=== PATIENT | female | born 1995 | race American Indian/Alaskan Native ===

== ENCOUNTER 2022-04-29 11:42 | Inpatient (IN) | payer MEDICAID ==
[2022-04-29] MEDS ORDERED: OXYTOCIN DRIP 30,000 MILLIUNITS/500 ML BAG IV ONE (12:30)
[2022-04-29] MEDS ORDERED: LIDOCAINE (2%) 20 MG/1 ML VIAL 20 ML MDV INFILTRATI ONE ×2 (12:40→13:01)
[2022-04-29] MEDS ORDERED: fentaNYL 100 MCG/2 ML INJ ONE (12:42)
[2022-04-29] MEDS ORDERED: miSOPROStol 200 MCG TAB ONE (12:54)
[2022-04-29] MEDS ORDERED: OXYTOCIN 10 UNIT/1 ML INJ IM PRN (13:01)
[2022-04-29] MEDS ORDERED: ACETAMINOPHEN 325 MG TAB PO PRN ×2 (13:01→15:27)
[2022-04-29] MEDS ORDERED: PROMETHAZINE 25 MG TAB PO PRN ×2 (13:01→15:27)
[2022-04-29] MEDS ORDERED: miSOPROStol 200 MCG TAB PR PRN (13:01)
[2022-04-29] MEDS ORDERED: ePHEDrine SULFATE 50 MG/1 ML INJ IV PRN (13:01)
[2022-04-29] MEDS ORDERED: ONDANSETRON 4 MG/2 ML INJ IV PRN ×2 (13:01→15:27)
[2022-04-29] MEDS ORDERED: NalbUPHINE 10 MG/1 ML INJ IV PRN (13:01)
[2022-04-29] MEDS ORDERED: METHYLERGONOVINE MALEATE 0.2 MG/ML VIAL IM PRN (13:01)
[2022-04-29] MEDS ORDERED: CARBOPROST TROMETHAMINE 250 MCG/1 ML INJ IM PRN (13:01)
[2022-04-29] MEDS ORDERED: fentaNYL 100 MCG/2 ML INJ IV PRN (13:01)
[2022-04-29] MEDS ORDERED: TERBUTALINE 1 MG/1 ML INJ SUB-Q PRN (13:01)
[2022-04-29] MEDS ORDERED: PENICILLIN G POTASSIUM 5 MIL.UNITS in SODIUM CHLORIDE 0.9% 50 ML IV ONE (13:01)
[2022-04-29] MEDS ORDERED: MINERAL OIL 30 ML ORAL LIQD PO PRN (13:01)
[2022-04-29] MEDS ORDERED: LOPERAMIDE 2 MG CAP PO PRN (13:01)
[2022-04-29] MEDS ORDERED: LACTATED RINGERS 1,000 ML IV SCH (13:15)
--- NOTE | 2022-04-29 13:19 | History and Physical Report ---
History of Present Illness Date of examination: 04/29/22 Date of admission: 04/29/22 13:01 Chief complaint: ctx History of present illness: at 38.4wks by pt report of EDC 05/09/22. at [place]. Pt came to [facility] with c/o painful ctx and desire to push. pt admits to movement, denies LOF or vag bleed. pt denies headache. Pt states that she was given an injection during preg for her blood type. pt unaware of FOB blood type. Past History Past Medical History: other (morbid obesity) Past Surgical History: no surgical history Social history: no significant social history - Obstetrical History Expected Date of Delivery: 05/09/22 Actual Gestation: 38 Week(s) 4 Day(s) : 2 Hx # Term Pregnancies: 1 Number of Living Children: 1 Medications and Allergies Allergies Allergy/AdvReac Type Severity Reaction Status Date / Time strawberry Allergy Anaphylaxis Verified 04/29/22 12:43 Active Meds: Active Medications Acetaminophen (Acetaminophen 325 Mg Tab) 650 mg PO Q4H PRN PRN Reason: Pain, Mild (1-3) Carboprost Tromethamine (Carboprost Tromethamine 250 Mcg/1 Ml Inj) 250 mcg IM ONCE PRN PRN Reason: Uterine Bleeding Ephedrine Sulfate (Ephedrine Sulfate 50 Mg/1 Ml Inj) 10 mg IV Q2M PRN PRN Reason: Hypotension Fentanyl (Fentanyl 100 Mcg/2 Ml Inj) 100 mcg IV Q2H PRN PRN Reason: Pain,Severe (7-10) LABOR PAIN Oxytocin/Sodium Chloride (Pitocin/Ns 30 Unit/500ml) 30 units in 500 mls @ 2 mls/hr IV TITR SÁNCHEZ; Protocol Lactated Ringer's (Lactated Ringers) 1,000 mls @ 125 mls/hr IV DIRECT SÁNCHEZ Oxytocin/Sodium Chloride (Pitocin/Ns 30 Unit/500ml) 30 units in 500 mls @ 40 mls/hr IV TITR SÁNCHEZ; Protocol Penicillin G Potassium 5 mil. (units/ Sodium Chloride) 50 mls @ 100 mls/hr IV ONCE ONE; Protocol Stop: 04/29/22 13:30 Loperamide HCl (Loperamide 2 Mg Cap) 2 mg PO ONCE PRN PRN Reason: give with Hemabate Methylergonovine Maleate (Methylergonovine Maleate 0.2 Mg/Ml Vial) 0.2 mg IM ONCE PRN PRN Reason: Uterine Bleeding Mineral Oil (Mineral Oil 30 Ml Oral Liqd) 30 ml PO QHS PRN PRN Reason: Constipation Misoprostol (Misoprostol 200 Mcg Tab) 800 mcg NV ONCE PRN PRN Reason: Uterine Bleeding Nalbuphine HCl (Nalbuphine 10 Mg/1 Ml Inj) 10 mg IV Q2H PRN PRN Reason: Pain, Moderate (4-6) Ondansetron HCl (Ondansetron 4 Mg/2 Ml Inj) 4 mg IV Q8H PRN PRN Reason: Nausea And Vomiting Oxytocin (Oxytocin 10 Unit/1 Ml Inj) 10 unit IM ONCE PRN PRN Reason: Uterine Bleeding Promethazine HCl (Promethazine 25 Mg Tab) 25 mg PO Q6H PRN PRN Reason: Nausea And Vomiting Terbutaline Sulfate (Terbutaline 1 Mg/1 Ml Inj) 0.25 mg SUB-Q ONCE PRN PRN Reason: Hyperstimulation/Hypertonicity Review of Systems All systems: negative (ctx) - Vital Signs Vital signs: Vital Signs Pulse Pulse Ox 81 100 04/29/22 12:34 04/29/22 12:34 Temp Pulse Resp BP Pulse Ox 97.8 F 76 20 143/73 100 04/29/22 13:05 04/29/22 13:14 04/29/22 13:05 04/29/22 13:10 04/29/22 13:14 - Physical Exam Breasts: Positive: deferred Lungs: Positive: Normal air movement Genitourinary (Female): Positive: normal external genitalia (blood on perineum) Vagina: Positive: normal moisture Uterus: Positive: enlarged Anus/Rectum: Positive: normal perianal skin Extremities: Positive: normal - Obstetrical FHR: category 1 Uterine Contraction Monitor Mode: External Cervical Dilatation: 10 (8cm by triage nurse) station: -3 Uterine Contraction Pattern: Regular Uterine Contraction Intensity: Moderate Results All other labs normal. Assessment and Plan Term preg in active labor and pt pushing stating she can't wait, the baby is coming 1. Admit to labor and delivery 2. Obtain records from her clinic 3. See delivery note 4. Plan of care discussed and delivery note. please see note
[2022-04-29 13:29] LABS: Hematocrit 32.4 % (30.3-42.9); Mean Corpuscular HGB Conc 31 % (30-34); Mean Corpuscular Volume 71 fl (79-97); Platelet Count 201 K/mm3 (140-440); Red Cell Distribution Width 17.9 % (13.2-15.2)
[2022-04-29] MEDS ORDERED: OXYTOCIN DRIP 30 UNITS/500 ML BAG IV SCH ×3 (14:00→15:27)
[2022-04-29] MEDS ORDERED: miSOPROStol 100 MCG TAB PR PRN (15:27)
[2022-04-29] MEDS ORDERED: PROMETHAZINE 25 MG RECT SUPP PR PRN (15:27)
[2022-04-29] MEDS ORDERED: diphenhydrAMINE 25 MG CAP PO PRN (15:27)
[2022-04-29] MEDS ORDERED: WITCH HAZEL/ GLYCERIN PAD TP PRN (15:27)
[2022-04-29] MEDS ORDERED: BENZOCAINE/MENTHOL 20/0.5% TOP SPRAY 56 GM TP PRN (15:27)
[2022-04-29] MEDS ORDERED: LANOLIN/ZINC/DIMETHICONE (LANSINOH) 7 GM TP PRN (15:27)
[2022-04-29] MEDS ORDERED: oxyCODONE /ACETAMINOPHEN 5-325MG TAB PO PRN (15:27)
[2022-04-29] MEDS: IBUPROFEN 800 MG TAB PO SCH ×2 (16:36→23:11)
--- NOTE | 2022-04-29 18:27 | Procedure Note ---
OB Delivery Note - Delivery Date of Delivery: 04/29/22 Surgeon: TONNY MCCLURE Estimated blood loss: 300cc - Vaginal Delivery presentation: vertex Delivery position: OA Intrapartum events: precipitous labor- <3hr Delivery induction: none Delivery augmentation: rupture of membranes Delivery monitor: external FHT, external uterine Route of delivery: Delivery placenta: spontaneous Delivery cord: 3 umbilical vessels Episiotomy: none Delivery laceration: 1st degree (left labial first degree repaired) Delivery repair: chromic Anesthesia: local Delivery comments: Pt screaming that she could not wait with bulging bag at +3 station and head at +1; AROM clear flud. Precipitous vaginal delivery with pt moving and uncontrolled. Viable male infant delivered uncomplicated. pt sustained 1st degree left labial laceration and same repaired with 2-0 chromic suture x1 figure of 8. Cervix and vagina without laceration. pt also given IV fentanyl and local anesthetic lidocaine for pain relief during repair. pt given cytotec 800mcg per rectum with large baby and precipitous delivery and large clots removed from lower uterine segment. Placenta delivered complete with 3vessel cord. Fundus firm. Mom and baby stable. - Infant A at 1 minute: 8 at 5 minutes: 9 (wt 3750g; clear amniotic fluid) Infant Gender: Male
[2022-04-29] MEDS ORDERED: MAGNESIUM HYDROXIDE (MOM) ORAL LIQD UDC PO PRN (22:00)
[2022-04-30 05:46] LABS: Amphetamine Screen,Urine Negative; Benzodiazepines Screen,Urine Negative; Cannabinoid Screen,Urine Negative; Cocaine Screen,Urine Negative; Methadone Screen,Urine Negative; Opiate Screen,Urine Negative
[2022-04-30] MEDS: IBUPROFEN 800 MG TAB PO SCH ×2 (06:11→22:57)
[2022-04-30 08:55] LABS: Hemoglobin 9.8 gm/dl (10.1-14.3); Mean Corpuscular HGB Conc 31 % (30-34); Mean Corpuscular Volume 71 fl (79-97); Platelet Count 187 K/mm3 (140-440); Red Blood Count 4.51 M/mm3 (3.65-5.03); Red Cell Distribution Width 17.7 % (13.2-15.2)
[2022-04-30] MEDS: PRENATAL VIT27-FE FUMARATE-FOLIC ACID VIT TAB PO SCH (12:37)
--- NOTE | 2022-04-30 12:40 | Progress Note ---
Assessment and Plan PPD#1 doing well 1. Routine care. Await CBC later today Subjective Date of service: 04/30/22 Principal diagnosis: PPD#1 Interval history: pt has no complaints. pt is bottle and breast feeding. Vag bleed less than a period. Denies pelvic pain. Objective - Constitutional Vitals: Vital Signs - 12hr 04/30/22 04/30/22 04/30/22 00:52 04:00 08:05 Temperature 98.0 F 98.6 F Pulse Rate 75 77 Respiratory 18 16 Rate Blood Pressure 123/60 Blood Pressure 118/79 [Right] O2 Sat by Pulse 99 Oximetry O2 Sat by Pulse 92 Oximetry [ Anterior Bilateral Throughout] 04/30/22 08:22 Temperature 98.0 F Pulse Rate 73 Respiratory 18 Rate Blood Pressure 128/74 Blood Pressure [Right] O2 Sat by Pulse 100 Oximetry O2 Sat by Pulse Oximetry [ Anterior Bilateral Throughout] General appearance: Present: no acute distress - Neck Neck: normal ROM - Respiratory Respiratory effort: normal - Breasts Breasts: deferred - Cardiovascular Rhythm: regular Extremities: No edema - Gastrointestinal General gastrointestinal: Present: soft, non-tender - Genitourinary Female genitourinary: other (fundus firm 1cm below umbilicus, non-tender) - Integumentary Integumentary: warm, dry - Neurologic Neurologic: moves all extremities - Psychiatric Psychiatric: cooperative - Labs CBC & Chem 7: 04/30/22 08:00 Labs: Abnormal lab results 04/29/22 04/30/22 Range/Units 12:30 08:00 WBC 12.2 H (4.5-11.0) K/mm3 Hgb 10.0 L 9.8 L (10.1-14.3) gm/dl MCV 71 L 71 L (79-97) fl MCH 22 L 22 L (28-32) pg RDW 17.9 H 17.7 H (13.2-15.2) % Medications & Allergies - Medications Allergies/Adverse Reactions: Allergies strawberry Allergy (Verified 04/29/22 12:43) Anaphylaxis Active Medications: Generic Name Dose Route Start Last Admin Trade Name Freq PRN Reason Stop Dose Admin Acetaminophen 650 mg 04/29/22 15:27 Acetaminophen 325 Mg Tab PO Q4H PRN Pain MILD(1-3)/Fever >100.5/PETERSEN Benzocaine/Menthol 1 spray 04/29/22 15:27 Benzocaine/Menthol 20/0.5% Top [place] 56 Gm TP PRN PRN Episiotomy Pain Bisacodyl 10 mg 04/29/22 15:27 Bisacodyl 10 Mg Rect Supp [place] BID PRN Constipation Diphenhydramine HCl 25 mg 04/29/22 15:27 Diphenhydramine 25 Mg Cap PO Q6H PRN Itching Ephedrine Sulfate 10 mg 04/29/22 13:01 Ephedrine Sulfate 50 Mg/1 Ml Inj IV Q2M PRN Hypotension Fentanyl 100 mcg 04/29/22 13:01 Fentanyl 100 Mcg/2 Ml Inj IV Q2H PRN Pain,Severe (7-10) LABOR PAIN Lactated Ringer's 1,000 mls @ 125 mls/hr 04/29/22 13:15 Lactated Ringers IV DIRECT SÁNCHEZ Oxytocin/Sodium Chloride 30 units in 500 mls @ 40 mls/hr 04/29/22 15:27 Pitocin/Ns 30 Unit/500ml IV TITR SÁNCHEZ Protocol Ibuprofen 800 mg 04/29/22 15:27 04/30/22 06:11 Ibuprofen 800 Mg Tab PO 800 mg Q6H SÁNCHEZ Administration Loperamide HCl 2 mg 04/29/22 13:01 Loperamide 2 Mg Cap PO ONCE PRN give with Hemabate Magnesium Hydroxide 30 ml 04/29/22 22:00 Magnesium Hydroxide (Mom) Oral Liqd Udc PO HS PRN Constipation Mineral Oil 30 ml 04/29/22 13:01 Mineral Oil 30 Ml Oral Liqd PO QHS PRN Constipation Multi-Ingredient Ointment 1 applic 04/29/22 15:27 Lanolin/Zinc/Dimethicone (Lansinoh) 7 Gm TP PRN PRN Sore Nipples Multivitamins/Iron/Calcium 1 each 04/30/22 10:00 [id number] Fumarate-Folic Acid Vit Tab PO QDAY SÁNCHEZ Ondansetron HCl 4 mg 04/29/22 15:27 Ondansetron 4 Mg/2 Ml Inj IV Q8H PRN Nausea And Vomiting Oxycodone/Acetaminophen 2 tab 04/29/22 15:27 Oxycodone /Acetaminophen 5-325mg Tab PO Q4H PRN Pain, Moderate (4-6) Oxytocin 10 unit 04/29/22 13:01 Oxytocin 10 Unit/1 Ml Inj IM ONCE PRN Uterine Bleeding Promethazine HCl 25 mg 04/29/22 15:27 Promethazine 25 Mg Rect Supp [place] Q6H PRN Nausea And Vomiting Promethazine HCl 25 mg 04/29/22 15:27 Promethazine 25 Mg Tab PO Q6H PRN Nausea And Vomiting Sodium Chloride 10 ml 04/29/22 15:27 Sodium Chloride 0.9% 10 Ml Flush Syringe IV 05/04/22 15:26 PRN NR Witch Radha/Glycerin 1 each 04/29/22 15:27 Witch Radha/ Glycerin Pad TP PRN PRN Hemorrhoid/cleansing/soothing
[2022-05-01] MEDS: IBUPROFEN 800 MG TAB PO SCH ×2 (05:36→15:13)
[2022-05-01] MEDS: PRENATAL VIT27-FE FUMARATE-FOLIC ACID VIT TAB PO SCH (12:02)
[2022-05-01] MEDS ORDERED: medroxyPROGESTERone ACETATE 150 MG/ML SYRINGE IM NR (14:09)
--- NOTE | 2022-05-01 14:13 | Progress Note ---
Assessment and Plan A: PP Day #2 Asymptomatic Anemia P: Follow Routine Orders Increase Dietary Iron Depo Provera 150mg IM x 1 dose prior to discharge D/C Home today RTO in 3 Weeks for Sterilization Consult Subjective - Subjective Principal diagnosis: PPD#1 Patient reports: appetite normal, voiding normally, pain well controlled, flatus, bowel movement, ambulating normally : doing well, bottle feeding (and ) Objective - Vital Signs Latest vital signs: Vital Signs Temp Pulse Resp BP Pulse Ox Pulse Ox 05/01/22 08:30 100 05/01/22 08:03 97.7 F 69 20 132/68 100 05/01/22 05:36 16 04/30/22 23:31 98.2 F 70 20 138/78 100 04/30/22 21:59 100 04/30/22 15:57 98.0 F 68 18 125/70 100 Intake and Output 04/30/22 05/01/22 05/01/22 22:59 06:59 14:59 Intake Total 240 480 Balance 240 480 Intake: Oral 240 120 Intake, Free Water 360 Other: Total, Intake Amount 240 120 # Voids Void 1 1 2 - Exam Breasts: Present: normal Cardiovascular: Present: Regular rate Lungs: Present: Clear to auscultation, Normal air movement Abdomen: Present: normal appearance, soft, normal bowel sounds Uterus: Present: normal, firm, fundal height below umbilicus Extremities: Present: normal
--- NOTE | 2022-05-01 14:14 | Discharge Summary ---
Providers - Providers Date of Admission: 04/29/22 13:01 Date of discharge: 05/01/22 Attending physician: TONNY MCCLURE Primary care physician: TONNY MCCLURE Hospitalization Reason for admission: active labor Delivery: Episiotomy: none Laceration: none Other procedures: none complications: none Discharge diagnosis: IUP at term delivered [place] baby: male Condition at discharge: Good Disposition: 01 HOME / SELF CARE / HOMELESS Plan - Provider Discharge Summary Activity: routine, no sex for 6 weeks, no heavy lifting 4 weeks, no strenuous exercise Diet: routine Instructions: routine Additional instructions: [] Smoking cessation referral if applicable(refer to patient education folder for contact #) [] Refer to [facility] Booklet Call your doctor immediately for: * Fever > 100.5 * Heavy vaginal bleeding ( >1 pad per hour) * Severe persistent headache * Shortness of breath * Reddened, hot, painful area to leg or breast * Drainage or odor from incision. * Keep incision clean and dry at all times and follow doctor's instructions regarding bathing/showering - Follow up plan Follow up: TONNY MCCLURE MD [Primary Care Provider] - 7 Days
[2022-05-01 16:34] VITALS: BP 133/68
== END 2022-05-01 17:25 | disposition home or self-care (01) | DRG 775 ==
LOC: TRG 11:42 → APU 11:44 → LD 12:30 → TRG 13:12 → OB 17:07
PROVIDERS: ADMIT Obstetrics & Gynecology; ATTEND Obstetrics & Gynecology
PROC: 10E0XZZ Delivery of Products of Conception, External Approach (ICD-10-PCS; principal; 2022-04-29)
PROC: 0HQ9XZZ Repair Perineum Skin, External Approach (ICD-10-PCS; 2022-04-29)
PROC: 10907ZC Drainage of Amniotic Fluid, Therapeutic from Products of Conception, Via Natural or Artificial Opening (ICD-10-PCS; 2022-04-29)
DX: O62.3 Precipitate labor (principal); Z37.0 Single live birth; Z3A.38 38 weeks gestation of pregnancy; Z20.822 Contact with and (suspected) exposure to COVID-19; O99.214 Obesity complicating childbirth; E66.01 Morbid (severe) obesity due to excess calories; O70.0 First degree perineal laceration during delivery; Z91.018 Allergy to other foods
CPT/HCPCS: 36415; 80307; 85014; 85018; 85027; 86592; 86706; 86762; 86850; 86900; 86901; 87806; G0378; J3490; J1050; J2590; J3010; U0003